=== PATIENT | female | born 1995 | race Caucasian/White ===

== ENCOUNTER 2018-12-11 22:24 | Inpatient (IN) | payer OTHER ==
[~2018-12-11] VITALS: Ht 170.2 cm; Wt 60.2 kg
[2018-12-11] MEDS ORDERED: ALBUTEROL/IPRATROPIUM 2.5MG/0.5MG, 3 ML ONE ×2 (22:40→23:54)
[2018-12-11] MEDS ORDERED: ALBUTEROL/IPRATROPIUM 2.5MG/0.5MG, 3 ML NPPB ONE (23:00)
--- NOTE | 2018-12-11 23:14 | NUR ---
PT WATCHING TV IN ROOM. PULSE OX ON. ANCHOR TACKER ON NSR NOTED. CALL LIGHT IN PLACE. WILL CONTINUE TO MONITOR.
[2018-12-11] MEDS ORDERED: ALBUTEROL (23:17)
--- NOTE | 2018-12-11 23:45 | NUR ---
PT IS ABLE TO AMBULATE AROUND ROOM NO ACUTE DISTRESS NOTED PT REPORTS SHE IS READY FOR DISCHRAGE.
--- NOTE | 2018-12-11 23:47 | NUR ---
AFTER WALKING AROUND ROOM PT IS 85% RA. PROVIDER AWARE. RT CALLED
[2018-12-12] MEDS ORDERED: ALBUTEROL/IPRATROPIUM 2.5MG/0.5MG, 3 ML NPPB ONE
--- NOTE | 2018-12-12 00:59 | NUR ---
PT RESTING IN ROOM. NO ACUTE DISTRESS NOTED. OXYGEN TAKEN OFF. PT ON ROOM AIR. WILL CONTINUE TO MONITOR.
--- NOTE | 2018-12-12 01:28 | NUR ---
PT DROPS TO 77% RA WHEN SLEEPING PT NOW ON 3L NC AT 95%. DR CARTER HAS UPDATED PATIENT. CALL LIGHT IN PLACE. VS STABLE. WILL CONTINUE TO MONITOR.
[2018-12-12] MEDS ORDERED: ACETAMINOPHEN 325 MG TABLET PO PRN (02:00)
[2018-12-12] MEDS: methylPREDNISolone SOD SUCC 40 MG/ML IVPush SCH ×2 (02:33→08:42)
[2018-12-12] MEDS ORDERED: ALBUTEROL SULFATE 2.5 MG/3 ML NPPB SCH (06:00)
[2018-12-12 07:34] VITALS: BP 102/63
[2018-12-12] MEDS ORDERED: MONTELUKAST 10 MG TABLET PO SCH (09:00)
[2018-12-12] MEDS ORDERED: predniSONE 50MG TABLET PO SCH (09:00)
[2018-12-12] MEDS ORDERED: MONT10TA9 PO (18:25)
== END 2018-12-12 09:05 | disposition left against medical advice (07) | DRG 189 ==
LOC: ED 12-12 02:10 → 4NOR 12-12 02:13 → ED 12-12 03:02
PROVIDERS: ADMIT Family Medicine; ATTEND Family Medicine
DX: J96.01 Acute respiratory failure with hypoxia (principal); J45.42 Moderate persistent asthma with status asthmaticus; F11.10 Opioid abuse, uncomplicated; F17.210 Nicotine dependence, cigarettes, uncomplicated; J44.9 Chronic obstructive pulmonary disease, unspecified; M41.9 Scoliosis, unspecified; F15.10 Other stimulant abuse, uncomplicated; Z53.21 Procedure and treatment not carried out due to patient leaving prior to being seen by health care provider
CPT/HCPCS: 99285; J7613; J7620; 71046; 93005; 94640; G0378; J2920; J7512

== ENCOUNTER 2018-12-20 00:50 | Inpatient (IN) | payer OTHER ==
[~2018-12-20] VITALS: Ht 170.2 cm; Wt 61.3 kg
[~2018-12-20 00:50] MED LIST: ALBUTEROL; MONT10TA9 PO
--- NOTE | 2018-12-20 00:58 | NUR ---
Pt ambulated to room with EDT and friend/family member.
--- NOTE | 2018-12-20 01:07 | NUR ---
Dr. Vann at bedside to evaluate pt.
--- NOTE | 2018-12-20 01:13 | NUR ---
XR at bedside.
[2018-12-20] MEDS: ALBUTEROL/IPRATROPIUM 2.5MG/0.5MG, 3 ML NPPB SCH ×6 (01:24→20:15)
[2018-12-20 01:29] LABS: MEAN CORPUSCULAR HEMOGLOBIN 28.4 pg (27.0-34.8); MEAN CORPUSCULAR HGB CONC 33.1 g/dL (32.4-35.8); MEAN CORPUSCULAR VOLUME 85.8 fL (80-100); MEAN PLATELET VOLUME 8.4 fL (7.4-10.4); PLATELET COUNT 380 x10^3/uL (130-400); RED BLOOD COUNT 5.29 x10^6/uL (3.82-5.3); RED CELL DISTRIBUTION WIDTH 14.2 % (9.6-15.2)
--- NOTE | 2018-12-20 01:29 | NUR ---
RT at bedside.
[2018-12-20 01:42] LABS: ALBUMIN 3.8 g/dL (3.4-5.0); ANION GAP 6 mmol/L (5-15); CHLORIDE 108 mmol/L (98-107); CREATININE 0.82 mg/dL (0.55-1.02)
[2018-12-20 01:44] LABS: MD YES
[2018-12-20 01:48] LABS: <PLATELET ESTIMATE> ADEQUATE; <PLT MORPHOLOGY> NORMAL PLT MORPH; <RBC MORPHOLOGY> NORMAL; EOS#(MANUAL) 1.61 x10^3/uL (0.0-0.4); EOS% (MANUAL) 13 % (1-7); LYMPH#(MANUAL) 4.46 x10^3/uL (1-3.4); LYMPHS% (MANUAL) 36 % (22-44); MONOS#(MANUAL) 0.87 x10^3/uL (0.3-2.7); MONOS% (MANUAL) 7 % (2-9); SEG#(MANUAL) 5.46 x10^3/uL (1.8-6.8); SEGS% (MANUAL) 44 % (42-75)
--- NOTE | 2018-12-20 01:49 | NUR ---
Pt medicated per MAR.
--- NOTE | 2018-12-20 02:00 | NUR ---
Pt sleeping on guzachariah, VSS.
--- NOTE | 2018-12-20 02:05 | NUR ---
RT at bedside for 2nd treatment.
--- NOTE | 2018-12-20 02:20 | NUR ---
Dr. Vann at bedside to discuss ED findings and POC. O2 turned off.
--- NOTE | 2018-12-20 02:55 | NUR ---
Pt's O2 noted to have dropped to 87% with a good wave form and sustaining. Dr. Vann made aware, pt's O2 replaced. Pt to be admitted to [facility].
--- NOTE | 2018-12-20 03:03 | NUR ---
PIV started, pt aware of plan to be admitted to hospital.
--- NOTE | 2018-12-20 03:03 | NUR ---
Pt's mom: Rosa St
--- NOTE | 2018-12-20 03:08 | NUR ---
Bedside SBAR report given to RNDavy. Pt sleeping on gurney, remains on 2L NC O2.
--- NOTE | 2018-12-20 03:15 | NUR ---
PT ALSEEP AT THIS TIME. BS REPORT OF PT FROM LUCRETIA OGDEN AND ASSUMING CARE OF PT.
[2018-12-20] MEDS ORDERED: ONDANSETRON 2MG/ML, 2ML IVPush PRN (04:30)
[2018-12-20] MEDS ORDERED: IBUPROFEN 600 MG TABLET PO PRN (04:30)
[2018-12-20] MEDS ORDERED: ONDANSETRON ODT 4 MG PO PRN (04:30)
[2018-12-20] MEDS ORDERED: ACETAMINOPHEN 325 MG TABLET PO PRN (04:30)
--- NOTE | 2018-12-20 04:37 | NUR ---
PT VSS AND UPDATED IN EMR. PT SLEEPING COMFORTABLY IN [facility] AT THIS TIME; NADN. CALL LIGHT IS WITHIN REACH NEXT TO PT.
--- NOTE | 2018-12-20 05:04 | NUR ---
report of pt to kristine Roman. All questions answered. tech paged for transport of pt to floor.
[2018-12-20 05:27] VITALS: BP 114/73
[2018-12-20] MEDS ORDERED: ALBUTEROL/IPRATROPIUM 2.5MG/0.5MG, 3 ML NPPB PRN (05:30)
[2018-12-20 06:24] VITALS: BP 113/69
[2018-12-20] MEDS ORDERED: methylPREDNISolone SOD SUCC 125 MG/2 ML IVPush SCH (07:30)
[2018-12-20] MEDS: GUAIFENESIN 200 MG TABLET PO SCH ×4 (07:33→21:53)
[2018-12-20] MEDS: FAMOTIDINE 20 MG TABLET PO SCH ×2 (09:53→21:53)
[2018-12-20] MEDS: MONTELUKAST 10 MG TABLET PO SCH (09:53)
[2018-12-20 11:13] VITALS: BP 109/70
[2018-12-20] MEDS ORDERED: ENOXAPARIN 40 MG/0.4 ML SQ SCH (13:00)
[2018-12-20] MEDS: methylPREDNISolone SOD SUCC 125 MG/2 ML IVPush SCH ×2 (13:26→20:08)
[2018-12-20 19:53] LABS: RAPID INFLUENZA A Negative (Negative); RAPID INFLUENZA B Negative (Negative)
[2018-12-20 20:00] VITALS: BP 124/88
[2018-12-21] MEDS: methylPREDNISolone SOD SUCC 125 MG/2 ML IVPush SCH ×2 (02:13→08:30)
[2018-12-21 04:00] VITALS: BP 115/66
[2018-12-21 05:19] LABS: BASOPHILS % (AUTO) 0 % (0-1); EOSINOPHILS % (AUTO) 0 % (1-7); LYMPHOCYTES # (AUTO) 1.05 x10^3/uL (1-3.4); LYMPHOCYTES % (AUTO) 9 % (22-44); MD NO; MEAN CORPUSCULAR HEMOGLOBIN 28.7 pg (27.0-34.8); MEAN CORPUSCULAR HGB CONC 33.2 g/dL (32.4-35.8); MEAN CORPUSCULAR VOLUME 86.6 fL (80-100); MEAN PLATELET VOLUME 8.9 fL (7.4-10.4); MONOCYTES # (AUTO) 0.18 x10^3/uL (0.2-0.8); MONOCYTES % (AUTO) 2 % (2-9); NEUTROPHILS # (AUTO) 10.38 x10^3/uL (1.8-6.8); NEUTROPHILS % (AUTO) 89 % (42-75); PLATELET COUNT 359 x10^3/uL (130-400); RED BLOOD COUNT 4.75 x10^6/uL (3.82-5.3); RED CELL DISTRIBUTION WIDTH 14.6 % (9.6-15.2)
[2018-12-21 05:29] LABS: CHLORIDE 108 mmol/L (98-107)
[2018-12-21 05:37] LABS: ALANINE AMINOTRANSFERASE 23 U/L (12-78); ALBUMIN 3.6 g/dL (3.4-5.0); ALKALINE PHOSPHATASE 69 U/L (45-117); ANION GAP 4 mmol/L (5-15); BILIRUBIN,TOTAL 0.2 mg/dL (0.2-1.0); CALCIUM 9.3 mg/dL (8.5-10.1); CREATININE 0.76 mg/dL (0.55-1.02); TOTAL PROTEIN 7.4 g/dL (6.4-8.2)
[2018-12-21] MEDS: GUAIFENESIN 200 MG TABLET PO SCH ×2 (06:00→11:08)
[2018-12-21] MEDS: ALBUTEROL/IPRATROPIUM 2.5MG/0.5MG, 3 ML NPPB SCH ×2 (06:59→10:28)
[2018-12-21] MEDS: FAMOTIDINE 20 MG TABLET PO SCH (09:24)
[2018-12-21] MEDS: MONTELUKAST 10 MG TABLET PO SCH (09:25)
[2018-12-21] MEDS ORDERED: methylPREDNISolone SOD SUCC 125 MG/2 ML IVPush SCH (13:30)
== END 2018-12-21 11:31 | disposition left against medical advice (07) | DRG 202 ==
LOC: ED 03:00 → EDIP 03:07 → 3NW 05:15
PROVIDERS: ADMIT Family Medicine; ATTEND Family Medicine
DX: J45.901 Unspecified asthma with (acute) exacerbation (principal); J96.01 Acute respiratory failure with hypoxia; Z53.21 Procedure and treatment not carried out due to patient leaving prior to being seen by health care provider; Z87.891 Personal history of nicotine dependence
CPT/HCPCS: 36415; 87400; 99285; J7620; 71045; 80048; 80053; 82040; 84703; 85025; 94640; G0378; J2930; J7512

== ENCOUNTER 2018-12-28 19:07 | Emergency (ER) | payer SELFPAY ==
[~2018-12-28] VITALS: Ht 170.2 cm; Wt 61.2 kg
--- NOTE | 2018-12-28 19:15 | NUR ---
Pt wheeled to room with EDT, placed on O2, sats 87% in triage. Pt changing into gown.
--- NOTE | 2018-12-28 19:26 | NUR ---
Pt states that she started having tightness in her chest and difficulty this morning. Pt states she has been using her inhaler "a lot" throughout the day. Pt states that she does "not want to be admitted." Pt left the last 2 hospital visits AMA, after being admitted for same.
[2018-12-28 19:29] VITALS: BP 137/87
--- NOTE | 2018-12-28 19:42 | NUR ---
PIV started and labs drawn.
--- NOTE | 2018-12-28 19:47 | NUR ---
Dr. Penn at bedside to evaluate pt.
[2018-12-28] MEDS ORDERED: ALBUTEROL/IPRATROPIUM 2.5MG/0.5MG, 3 ML NPPB ONE (20:00)
[2018-12-28] MEDS ORDERED: SODIUM CHLORIDE 0.9% 1,000ML IVBOLUS ONE (20:00)
[2018-12-28] MEDS ORDERED: methylPREDNISolone SOD SUCC 125 MG/2 ML IVPush SCH (20:00)
--- NOTE | 2018-12-28 20:14 | NUR ---
LUNCH BREAK NOTE: PT REQUESTING TO LEAVE. 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 I WILL BE BACK LATER." DR. ORMERO AWARE. PT SIGNED OUT AMA PER DR. ROMERO.
[2018-12-28 20:34] LABS: BASOPHILS # (AUTO) 0.06 x10^3/uL (0-0.1); BASOPHILS % (AUTO) 0 % (0-1); EOSINOPHILS # (AUTO) 1.16 x10^3/uL (0-0.4); EOSINOPHILS % (AUTO) 7 % (1-7); LYMPHOCYTES # (AUTO) 3.99 x10^3/uL (1-3.4); LYMPHOCYTES % (AUTO) 25 % (22-44); MD NO; MEAN CORPUSCULAR HEMOGLOBIN 28.5 pg (27.0-34.8); MEAN CORPUSCULAR HGB CONC 32.8 g/dL (32.4-35.8); MEAN CORPUSCULAR VOLUME 86.8 fL (80-100); MEAN PLATELET VOLUME 8.6 fL (7.4-10.4); MONOCYTES # (AUTO) 1.07 x10^3/uL (0.2-0.8); MONOCYTES % (AUTO) 7 % (2-9); NEUTROPHILS # (AUTO) 9.51 x10^3/uL (1.8-6.8); NEUTROPHILS % (AUTO) 60 % (42-75); PLATELET COUNT 378 x10^3/uL (130-400); RED BLOOD COUNT 5.34 x10^6/uL (3.82-5.3); RED CELL DISTRIBUTION WIDTH 14.8 % (9.6-15.2)
[2018-12-28 20:44] LABS: ALBUMIN 3.9 g/dL (3.4-5.0); ANION GAP 6 mmol/L (5-15); CALCIUM 8.9 mg/dL (8.5-10.1); CHLORIDE 104 mmol/L (98-107); CREATININE 0.76 mg/dL (0.55-1.02)
== END 2018-12-28 20:15 | disposition left against medical advice (07) ==
LOC: ED 20:10
DX: J45.41 Moderate persistent asthma with (acute) exacerbation (principal); F17.200 Nicotine dependence, unspecified, uncomplicated
CPT/HCPCS: 36415; 80048; 82040; 84703; 85025; 93005; 99284